=== PATIENT | male | born 1975 | race Caucasian/White ===

== ENCOUNTER → 2024-03-06 | Day surgery (SDC) | payer BC ==
--- NOTE | 2024-03-06 18:01 | RAD REPORT ---
Exam:Biopsy Lymph Node CLINICAL HISTORY: Abnormal lymph node ICD R22.9 TECHNIQUE: Prior to the procedure, the risks and benefits of an ultrasound guided lymph node biopsy were explain ed to the patient which consented fully to the procedure. Prior ultrasound was reviewed. The patient's enlarged lymph node was again identified with ultrasound. This skin was prepped and anthony ped in the usual sterile fashion. Skin and deeper tissues were anesthetized with lidocaine Under sonographic guidance, a 17-gauge needle was placed into the abnormal lymph node within the left axilla. three 18-gauge needle passes were then introduced through the needle and 2 cm core specimens obtained. Patient experienced no immediate complication. IMPRESSION: Ultrasound-guided core biopsies of the abnormal lymph node within the left axilla
== END ==
LOC: DS 08:10
PROVIDERS: ATTEND Surgery
DX: R22.32 Localized swelling, mass and lump, left upper limb (principal)
CPT/HCPCS: 38505; 76942; 88305